=== PATIENT | female | born 1970 | race Hispanic/Latino ===

== ENCOUNTER 2021-07-17 09:49 | Observation (INO) | payer BC, OTHER ==
[2021-07-17] VITALS (7 sets, daily range): BP systolic 111–126; BP diastolic 62–72
[~2021-07-17] VITALS: Ht 147.3 cm; Wt 62.6 kg
[~2021-07-17 09:49] MED LIST: ROPIVACAINE 246.25 MG, EPINEPHRINE HCL 1:1000 1ML 0.5 MG, CLONIDINE HCL 0.08 MG in SODI... INJ ONE
[2021-07-17] MEDS ORDERED: Vancomycin IV 0 MG ONE (10:00)
[2021-07-17] MEDS ORDERED: TRANEXAMIC ACID 1,000 MG/10 ML ML ONE ×2 (10:01→10:49)
[2021-07-17] MEDS ORDERED: SODIUM CHLORIDE 0.9% 500ML 500 ML ONE ×2 (10:40→10:51)
[2021-07-17] MEDS ORDERED: DEXAMETHASONE SOD PHOS 10 MG/1 ML VIAL ONE (10:49)
[2021-07-17] MEDS ORDERED: GABAPENTIN 300 MG CAP ONE (10:49)
[2021-07-17] MEDS ORDERED: Vancomycin IV 1,000 MG ONE (10:49)
[2021-07-17] MEDS ORDERED: CELECOXIB 200 MG CAP ONE (10:49)
[2021-07-17] MEDS ORDERED: SODIUM CHLORIDE 0.9% 50ML 100 ML ONE (10:50)
[2021-07-17] MEDS ORDERED: HYDROCODONE/APAP 5MG-325MG TAB PO PRN (13:00)
[2021-07-17] MEDS ORDERED: ACETAMINOPHEN 650 MG SUPP PR PRN (13:00)
[2021-07-17] MEDS ORDERED: DIPHENHYDRAMINE HCL INJ 50 MG/ML VIAL IV PRN (13:00)
[2021-07-17] MEDS ORDERED: ONDANSETRON HCL INJ 2MG/ML 2ML 2 MG/ML VIAL IV PRN (13:00)
[2021-07-17] MEDS ORDERED: KETOROLAC TROMETHAMINE 30 MG/ML VIAL IV PRN (13:00)
[2021-07-17] MEDS ORDERED: DOCUSATE SODIUM 100 MG CAP PO PRN (13:00)
[2021-07-17] MEDS: SODIUM CHLORIDE 0.9% 1000ML 1,000 ML IV SCH ×2 (13:00→19:19)
[2021-07-17] MEDS ORDERED: ACETAMINOPHEN 1000 MG/100 ML IV PRN (15:00)
[2021-07-17] MEDS: ASPIRIN 325 MG TAB PO SCH (18:02)
[2021-07-17] MEDS: CELECOXIB 100 MG CAP PO SCH (18:02)
[2021-07-17] MEDS: HYDROCODONE/APAP 7.5MG-325MG 1 EA TAB PO PRN (18:13)
[2021-07-17] MEDS: Cefazolin 1 GM in SODIUM CHLORIDE 0.9% 50ML 50 ML IV SCH (19:24)
[2021-07-17] MEDS ORDERED: ZOLPIDEM TARTRATE 5 MG TAB PO PRN (21:00)
[2021-07-18] MEDS: HYDROCODONE/APAP 7.5MG-325MG 1 EA TAB PO PRN (03:13)
[2021-07-18] MEDS: Cefazolin 1 GM in SODIUM CHLORIDE 0.9% 50ML 50 ML IV SCH (03:13)
[2021-07-18 04:00] VITALS: BP 99/61
[2021-07-18 05:24] LABS: HEMATOCRIT 33.4 % (34.2-44.1); HEMOGLOBIN 11.2 g/dL (12.0-16.0)
[2021-07-18 07:25] VITALS: BP 90/75
[2021-07-18 07:54] VITALS: BP 90/75
[2021-07-18] MEDS: ASPIRIN 325 MG TAB PO SCH (08:17)
[2021-07-18] MEDS: CELECOXIB 100 MG CAP PO SCH (08:17)
[2021-07-18] MEDS: SODIUM CHLORIDE 0.9% 1000ML 1,000 ML IV SCH (09:00)
== END 2021-07-18 11:20 | disposition home or self-care (01) ==
LOC: OR 09:49 → PACU V 13:32 → MED/SURG 13:44 → MED/SURG3 22:59
PROVIDERS: ADMIT Specialist; ATTEND Specialist
DX: M16.0 Bilateral primary osteoarthritis of hip (principal); K29.70 Gastritis, unspecified, without bleeding; D64.9 Anemia, unspecified; E66.3 Overweight; Z68.28 Body mass index [BMI] 28.0-28.9, adult; Z20.822 Contact with and (suspected) exposure to COVID-19
CPT/HCPCS: 36415; 72170; 81025; 85014; 85018; 86850; 86900; 86920; C1713; C1776; G0378; J0171; J0690; J1100; J2795; J3370; J7040; U0002

== ENCOUNTER 2021-09-11 07:10 | Observation (INO) | payer OTHER ==
[2021-09-08 08:59] LABS: BASOPHILS % 0.5 % (0.0-1.0); EOSINOPHILS % 0.5 % (0.0-6.0); HEMATOCRIT 38.5 % (34.2-44.1); LYMPHOCYTES % 36.3 % (18.0-39.1); MEAN CORPUSCULAR HEMOGLOBIN 31.6 pg (28-32); MEAN CORPUSCULAR HGB CONC 33.8 g/dL (31-35); MEAN CORPUSCULAR VOLUME 93.4 fL (81-99); MONOCYTES # (AUTO) 0.5 (0.2-0.8); MONOCYTES % 9.2 % (4.4-11.3); NEUTROPHILS # (AUTO) 2.9 (2.1-6.9); NEUTROPHILS % 53.1 % (38.7-80.0); PLATELET COUNT 240 x10e3/uL (140-360); RED BLOOD COUNT 4.12 x10e6/uL (3.6-5.1); RED CELL DISTRIBUTION WIDTH 11.8 % (11.7-14.4)
[~2021-09-11] VITALS: Ht 147.3 cm; Wt 58.1 kg
[~2021-09-11 07:10] MED LIST changes: +ADVIL200 M1 PO; -ROPIVACAINE 246.25 MG, EPINEPHRINE HCL 1:1000 1ML 0.5 MG, CLONIDINE HCL 0.08 MG in SODI... INJ ONE; +ROPIVACAINE 246.25 MG, EPINEPHRINE HCL 1:1000 1ML 0.5 MG, CLONIDINE HCL 0.08 MG, KETORO... INJ ONE
[2021-09-11] MEDS ORDERED: SODIUM CHLORIDE 0.9% 50ML 100 ML ONE (08:02)
[2021-09-11] MEDS ORDERED: DEXAMETHASONE SOD PHOS 10 MG/1 ML VIAL ONE (08:02)
[2021-09-11] MEDS ORDERED: CELECOXIB 200 MG CAP ONE (08:02)
[2021-09-11] MEDS ORDERED: GABAPENTIN 300 MG CAP ONE (08:02)
[2021-09-11] MEDS ORDERED: SODIUM CHLORIDE 0.9% 500ML 500 ML ONE (08:37)
[2021-09-11] MEDS ORDERED: Vancomycin IV 1,000 MG ONE (08:37)
[2021-09-11] MEDS ORDERED: BUPIVACAINE 7.5MG/ML /DEXTROSE 82.5MG/ML 2 ML AMP INJ ONE (08:46)
[2021-09-11] MEDS ORDERED: PROPOFOL IV EMULSION 10 MG/ML 20 ML VIAL ONE (11:53)
[2021-09-11] MEDS ORDERED: POVIDONE IODINE 0.05% 0.05 % ML PO ONE (11:53)
[2021-09-11] MEDS ORDERED: DIPHENHYDRAMINE HCL INJ 50 MG/ML VIAL IV PRN (12:00)
[2021-09-11] MEDS: SODIUM CHLORIDE 0.9% 1000ML 1,000 ML IV SCH ×2 (12:00→22:00)
[2021-09-11] MEDS ORDERED: HYDROCODONE/APAP 5MG-325MG TAB PO PRN (12:00)
[2021-09-11] MEDS ORDERED: ACETAMINOPHEN 650 MG SUPP PR PRN (12:00)
[2021-09-11] MEDS ORDERED: ONDANSETRON HCL INJ 2MG/ML 2ML 2 MG/ML VIAL IV PRN (12:00)
[2021-09-11] MEDS ORDERED: KETOROLAC TROMETHAMINE 30 MG/ML VIAL IV PRN (12:00)
[2021-09-11] MEDS ORDERED: DOCUSATE SODIUM 100 MG CAP PO PRN (12:00)
[2021-09-11] MEDS ORDERED: FENTANYL CITRATE/PF 100MCG/2 ML INJ ONE (12:36)
[2021-09-11] MEDS ORDERED: MIDAZOLAM HCL 2 MG/2 ML VIAL ONE (12:36)
[2021-09-11 13:35] VITALS: BP 97/56
[2021-09-11 13:50] VITALS: BP 97/56
[2021-09-11] MEDS: CELECOXIB 100 MG CAP PO SCH (16:59)
[2021-09-11] MEDS: Cefazolin 1 GM in SODIUM CHLORIDE 0.9% 50ML 50 ML IV SCH (16:59)
[2021-09-11] MEDS: ASPIRIN 325 MG TAB PO SCH (16:59)
[2021-09-11 17:01] VITALS: BP 97/56
[2021-09-11] MEDS ORDERED: ACETAMINOPHEN 1000 MG/100 ML IV PRN (18:00)
[2021-09-11 20:00] VITALS: BP 102/64
[2021-09-11] MEDS: HYDROCODONE/APAP 7.5MG-325MG 1 EA TAB PO PRN (20:51)
[2021-09-11] MEDS ORDERED: ZOLPIDEM TARTRATE 5 MG TAB PO PRN (21:00)
[2021-09-12] VITALS: BP 114/68
[2021-09-12] MEDS: Cefazolin 1 GM in SODIUM CHLORIDE 0.9% 50ML 50 ML IV SCH ×2 (01:53→07:57)
[2021-09-12] MEDS: HYDROCODONE/APAP 7.5MG-325MG 1 EA TAB PO PRN ×2 (02:06→10:41)
[2021-09-12 04:00] VITALS: BP 106/62
[2021-09-12 05:31] LABS: BASOPHILS % 0.2 % (0.0-1.0); HEMATOCRIT 30.1 % (34.2-44.1); HEMOGLOBIN 9.4 g/dL (12.0-16.0); LYMPHOCYTES # (AUTO) 1.1 (1.0-3.2); MEAN CORPUSCULAR HEMOGLOBIN 31.2 pg (28-32); MEAN CORPUSCULAR HGB CONC 31.2 g/dL (31-35); MONOCYTES # (AUTO) 1.1 (0.2-0.8); NEUTROPHILS # (AUTO) 16.4 (2.1-6.9); NEUTROPHILS % 87.1 % (38.7-80.0); PLATELET COUNT 198 x10e3/uL (140-360); RED BLOOD COUNT 3.01 x10e6/uL (3.6-5.1); RED CELL DISTRIBUTION WIDTH 11.8 % (11.7-14.4)
[2021-09-12 06:02] LABS: ALBUMIN 3.4 g/dL (3.5-5.0); ALBUMIN/GLOBULIN RATIO 1.2 (0.8-2.0); ANION GAP 11.8 mmol/L (8-16); CALCIUM 8.5 mg/dL (8.4-10.2); CREATININE, SERUM 0.67 mg/dL (0.57-1.11); POTASSIUM 3.8 mmol/L (3.5-5.1)
[2021-09-12] MEDS ORDERED: ONDANSETRON HCL 4 MG ORAL DISINTEGRATING TAB PO PRN (07:45)
[2021-09-12] MEDS: ASPIRIN 325 MG TAB PO SCH (07:57)
[2021-09-12] MEDS: CELECOXIB 100 MG CAP PO SCH (07:57)
[2021-09-12 08:00] VITALS: BP 104/70
[2021-09-12] MEDS: SODIUM CHLORIDE 0.9% 1000ML 1,000 ML IV SCH (08:00)
[2021-09-12 08:23] LABS: HEMATOCRIT 28.5 % (34.2-44.1); HEMOGLOBIN 9.5 g/dL (12.0-16.0)
[2021-09-12 08:29] VITALS: BP 104/70
== END 2021-09-12 11:27 | disposition home or self-care (01) ==
LOC: OR 07:10 → PACU V 11:52 → MED/SURG 13:05
PROVIDERS: ADMIT Specialist; ATTEND Specialist
DX: M16.7 Other unilateral secondary osteoarthritis of hip (principal); M24.852 Other specific joint derangements of left hip, not elsewhere classified; K29.70 Gastritis, unspecified, without bleeding; Q65.89 Other specified congenital deformities of hip; K21.9 Gastro-esophageal reflux disease without esophagitis; K76.0 Fatty (change of) liver, not elsewhere classified; Z96.641 Presence of right artificial hip joint; Z01.812 Encounter for preprocedural laboratory examination; Z20.822 Contact with and (suspected) exposure to COVID-19
CPT/HCPCS: 36415; 72170; 80053; 81025; 85014; 85018; 85025; 86850; 86900; 86920; 94799; C1713; C1776; G0378; J0171; J0690; J1100; J1885; J2250; J2795; J3010; J3370; J7030; J7040; U0002